=== PATIENT | male | born 2005 | race Hispanic/Latino ===

== ENCOUNTER 2024-08-18 08:40 | Observation (INO) | payer SELFPAY ==
[2024-08-18] MEDS ORDERED: NA CHLORIDE 0.9% 1,000 ML ONE (08:54)
[2024-08-18] MEDS ORDERED: ASPIRIN 81 MG CHEWABLE TABLET ONE (08:54)
[2024-08-18 09:03] LABS: Absolute Eosinophils 0.1 K/uL (0-0.5); Absolute Lymphocytes (CBC) 6.2 K/uL (0.7-4.9); Absolute Monocytes 1.2 K/uL (0.1-1.3); Absolute Neutrophil 2.9 K/uL (1.8-8.0); Basophils % 0.4 % (0-1.3); Eosinophils % 0.8 % (0-4.4); Hemoglobin 15.6 g/dL (13.6-17.9); Lymphocytes % 59.7 % (15.3-44.8); MCH 29.9 pg (27.0-35.0); MCHC 33.9 g/dL (32.0-36.0); MCV 88.3 fL (80-100); MPV 8.2 fL (7.6-11.3); Monocytes % 11.3 % (3.3-12.3); Neutrophils % 27.8 % (41.7-73.7); Nucleated Red Blood Cells % 0.1 % (0-0); Platelets 206 thou/uL (152-406); RBC Red Blood Cell Count 5.21 M/uL (4.33-5.43); Red Cell Distribution Width 13.7 % (12.1-15.2)
[2024-08-18 09:20] LABS: Anion Gap 9.7 mEq/L (5.0-15.0); Magnesium 2.3 mg/dL (1.6-2.4); Potassium 3.7 mEq/L (3.5-5.1)
[2024-08-18] MEDS ORDERED: LIDOCAINE 4% PATCH ONE (09:21)
[2024-08-18 09:22] LABS: Troponin High Sensitivity 995.5 pg/mL (<58.9)
[2024-08-18] MEDS ORDERED: HEPARIN/D5W 25,000 UNIT/500 ML BAG IV ONE (09:35)
[2024-08-18] MEDS ORDERED: HEPARIN 5000 UNIT/ML 1 ML VIAL ONE ×2 (09:35→12:08)
[2024-08-18 10:08] LABS: Barbiturates NEGATIVE (NEGATIVE); Benzodiazepines NEGATIVE (NEGATIVE); Cocaine NEGATIVE (NEGATIVE); METHAMPHETAM NEGATIVE (NEGATIVE); Methadone NEGATIVE (NEGATIVE); Opiates NEGATIVE (NEGATIVE); Phencyclidine NEGATIVE (NEGATIVE); THC Cannibis NEGATIVE (NEGATIVE)
--- NOTE | 2024-08-18 10:36 | RAD REPORT ---
Procedure: Chest Pa And Lat (2 Views) HISTORY: Chest pain COMPARISON: none FINDINGS: The lungs appear clear of acute infiltrate. No significant pleural effusion noted. The heart is normal size. IMPRESSION: No acute abnormality is displayed.
[2024-08-18 10:47] LABS: Atypical Lymphocytes 29 %; Blood Morphology Comment NOT SEEN (NOT SEEN); Differential Total Cells Count 100; Lymphocytes 11 % (15-42); Monocytes 17 % (0-10); Platelet Estimate ADEQ; Reactive Lymphocytes 15 %; Segmented Neutrophils 28 % (40-80)
--- NOTE | 2024-08-18 11:15 | EDPHYS ---
Physician Documentation [facility] Name: Shaun Colmenares Age: 19 yrs Sex: Male : 2005 Arrival Date: 08/18/2024 Time: 08:40 Bed 5 Private MD: ED Physician Misael Sin HPI: 08/18 08:52 This 19 yrs old Male presents to ER via Ambulatory with complaints of Chest Pain. ms3 08:52 Sudeep Colmenares is a 19-year-old male who presents to the emergency department with chest ms3 pain that began this morning while he was driving to work. He describes the pain as an 8 out of 10 in severity. He reports a history of needing to be shocked at age 13, though he is unsure of the details. He notes that drinking water seems to improve his symptoms, while nothing specific makes it worse. He reports having nausea. He denies vomiting, or shortness of breath.. Historical: - Allergies: 08:49 No Known Allergies; ss - Home Meds: 08:49 None [Active]; ss - PMHx: 08:49 "heart attack \\T\\ 13 years old"; ss - PSHx: 08:49 None; ss - Immunization history:: Adult Immunizations up to date. - Infectious Disease History:: Denies. - Social history:: Smoking status: Reported history of juuling and/or vaping. ROS: 08:52 Constitutional: Negative for fever, and chills. Respiratory: Negative for shortness of ms3 breath, cough, wheezing, and pleuritic chest pain, Abdomen/GI: Negative for abdominal pain, nausea, vomiting, diarrhea, and constipation, MS/Extremity: Negative for injury and deformity, Skin: Negative for injury, rash, and discoloration, 08:52 Cardiovascular: Positive for chest pain, Exam: 08:52 Constitutional: This is a well developed, well nourished patient who is awake, alert, ms3 and in no acute distress. Chest/axilla: Normal chest wall appearance and motion. Nontender with no deformity. Respiratory: Lungs have equal breath sounds bilaterally, clear to auscultation and percussion. No rales, rhonchi or wheezes noted. No increased work of breathing, no retractions or nasal flaring. Abdomen/GI: Soft, non-tender, with normal bowel sounds. No distension or tympany. No guarding or rebound. No evidence of tenderness throughout. Skin: Warm, dry with normal turgor. Normal color with no rashes, no lesions, and no evidence of cellulitis. 08:52 Cardiovascular: Rate: tachycardic, Rhythm: regular, Pulses: no pulse deficits are appreciated, Heart sounds: normal, normal S1and S2, 08:52 ECG was reviewed by the Attending Physician. ms3 Vital Signs: 08:48 BP 150 / 87; Pulse 108; Resp 19; Pulse Ox 100% on R/A; Weight 74.84 kg; Height 5 ft. 4 ss in. ; Pain 8/10; 08:54 Temp 98.5(O); ap3 09:52 BP 116 / 64; Pulse 90; Pulse Ox 99% on R/A; ap3 10:12 BP 124 / 106; Pulse 93; Resp 18; Pulse Ox 100% on R/A; ld1 12:14 BP 118 / 68; Pulse 91; Resp 18; Pulse Ox 100% on R/A; ld1 08:48 Body Mass Index 28.32 (74.84 kg, 162.56 cm) ss 08:48 Pain Scale: Adult ss MDM: 08:51 Medical Screening Exam initiated ms3 08:52 Differential diagnosis: abnormal EKG, Dehydration vs Electrolyte abnormality. ms3 12:34 HEART Score: History: Slightly Suspicious (0), ECG: Normal (0), Age: < or = 45 years ms3 (0), Risk Factors: No Risk Factors Known (0), Troponin: > or = 3 x Normal Limit (2), Total Score = 2. Data reviewed: vital signs, nurses notes, lab test result(s), radiologic studies, and as a result, I will admit patient. Consideration of Admission/Observation Patient was admitted/placed on observation. Management of patient was discussed with the following: Hospitalist: Dr Floyd. Warp Trucker: Dr Lerma. I considered the following discharge prescriptions or medication management in the emergency department Medications were administered in the Emergency Department. See MAR. Independent interpretation of the following test(s) in the Emergency Department EKG: See my EKG interpretation above. Counseling: I had a detailed discussion with the patient and/or guardian regarding the historical points, exam findings, and any diagnostic results supporting the discharge/admit diagnosis, lab results, radiology results, the need for further work-up and treatment in the hospital. Special discussion:. ED course: Discussed positive troponin with patient. Discussed case with Dr. Lerma and he came to the emergency department to see patient. He has taken patient to the Residential Insurance [facility]. Patient was discussed with Dr. Floyd and her team accepts patient. All questions were answered.. 08/18 08:51 Order name: Basic Metabolic Panel; Complete Time: 09:27 ms3 08/18 08:51 Order name: CBC with Diff; Complete Time: 11:01 ms3 08/18 08:51 Order name: Magnesium; Complete Time: 09:27 ms3 08/18 08:51 Order name: Troponin HS; Complete Time: 09:27 ms3 08/18 09:08 Order name: Manual Differential; Complete Time: 11:01 EDMS 08/18 09:27 Order name: UDS; Complete Time: 11:01 ms3 08/18 09:31 Order name: Ptt, Activated; Complete Time: 11:01 ld1 08/18 08:45 Order name: Chest Pa And Lat (2 Views) XRAY; Complete Time: 11:01 ms3 08/18 11:02 Order name: CT Chest For PE Angio; Complete Time: 11:33 ms3 08/18 08:45 Order name: EKG; Complete Time: 08:46 ms3 08/18 08:45 Order name: EKG - Nurse/Tech; Complete Time: 08:55 ms3 08/18 08:51 Order name: Cardiac monitoring; Complete Time: 08:54 ms3 08/18 08:51 Order name: IV Saline Lock; Complete Time: 08:54 ms3 08/18 08:51 Order name: Labs collected and sent; Complete Time: 08:55 ms3 08/18 08:51 Order name: O2 Per Protocol; Complete Time: 08:51 ms3 08/18 08:51 Order name: O2 Sat Monitoring; Complete Time: 08:51 ms3 EC:52 Rate is 113 beats/min. Rhythm is regular. QRS Sylvia is Normal. OK interval is normal. ms3 QRS interval is normal. Clinical impression: Sinus tachycardia. Interpreted by me. Reviewed by me. 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 ms3 Disposition Summary: 08/18/24 11:14 Hospitalization Ordered Notes: Hospitalization Status: Inpatient Admission ms3 Provider: Apollo Floyd ms3 [facility] ms3 Condition: Stable ms3 Problem: new ms3 Symptoms: are unchanged ms3 Bed/Room Type: Standard ms3 Room Assignment: ms3 Diagnosis - Elevated troponin ms3 - Chest pain, unspecified ms3 Forms: - Medication Reconciliation Form ms3 - SBAR form ms3 - Leadership Thank You Letter ms3 Critical care time excluding procedures: 12:37 Critical care time: Bedside Care: 35 minutes, Consultation: 5 minutes. Total time: 40 ms3 minutes Signatures: Dispatcher [employer] EDMS Arelis Taylor RN Misael Snell DO DO ms3 Nidhi Sin RN RN ld1 Mabel Chen RN cm10 Corrections: (The following items were deleted from the chart) 09:07 08:52 Chest Single View+RAD.RAD.BRZ ordered. EDMS EDMS 09:32 09:32 PTT, ACTIVATED+COAG.LAB.BRZ ordered. EDMS EDMS
--- NOTE | 2024-08-18 11:15 | ER ---
Nurse's Notes [facility] Name: Shaun Colmenares Age: 19 yrs Sex: Male : 2005 Arrival Date: 08/18/2024 Time: 08:40 Bed 5 Private MD: Diagnosis: Elevated troponin;Chest pain, unspecified Presentation: 08/18 08:48 Chief complaint: Patient states: Sudden onset of Chest pain this morning. Pt reports ss pain began hours ago. Reportedly has a history of HI \\T\\ 13 years old. Coronavirus screen: Client denies travel out of the [place] in the last 14 days. Ebola Screen: Patient denies exposure to infectious person. Patient denies travel to an Ebola-affected area in the 21 days before illness onset. Initial Sepsis Screen: Does the patient meet any 2 criteria? No. Patient's initial sepsis screen is negative. Does the patient have a suspected source of infection? No. Patient's initial sepsis screen is negative. Risk Assessment: Do you want to hurt yourself or someone else? Patient reports no desire to harm self or others. Onset of symptoms was August 18, 2024. 08:48 Method Of Arrival: Ambulatory ss 08:48 Acuity: FLORIN 3 ss Historical: - Allergies: 08:49 No Known Allergies; ss - Home Meds: 08:49 None [Active]; ss - PMHx: 08:49 "heart attack \\T\\ 13 years old"; ss - PSHx: 08:49 None; ss - Immunization history:: Adult Immunizations up to date. - Infectious Disease History:: Denies. - Social history:: Smoking status: Reported history of juuling and/or vaping. Screenin:57 [facility] ED Fall Risk Assessment (Adult) History of falling in the last 3 months, ap3 including since admission No falls in past 3 months (0 pts) Confusion or Disorientation No (0 pts) Intoxicated or Sedated No (0 pts) Impaired Gait No (0 pts) Mobility Assist Device Used No (0 pt) Altered Elimination No (0 pt) Score/Fall Risk Level 0 - 2 = Low Risk Oriented to surroundings, Maintained a safe environment, Educated pt \\T\\ family on fall prevention, incl call for assistance when getting out of bed, Assessed \\T\\ reinforced patient's understanding of fall precautions, Hourly rounding (assess needs \\T\\ fall precautionary measures) done, Used ambulatory aids as needed (educated on \\T\\ assisted with), Used gait belt as appropriate. Abuse screen: Denies threats or abuse. Nutritional screening: No deficits noted. Tuberculosis screening: No symptoms or risk factors identified. Assessment: 08:55 General: Appears uncomfortable, Behavior is calm, cooperative, appropriate for age. ap3 08:56 Pain: Complains of pain in chest Pain began this morning. Pain: Pain does not radiate. ap3 Pain currently is 7 out of 10 on a pain scale. Neuro: Level of Consciousness is awake, alert, obeys commands, Oriented to person, place, time, situation, Speech is normal. Cardiovascular: Reports chest pain, nausea. Respiratory: Airway is patent Respiratory effort is even, unlabored, Respiratory pattern is regular, symmetrical. GI: Reports nausea. 10:12 Reassessment: Patient appears in no apparent distress at this time. No changes from ld1 previously documented assessment. Patient and/or family updated on plan of care and expected duration. Pain level reassessed. Patient denies pain at this time. Patient states symptoms have improved. 12:09 General: Pt being taken to cathlab at this time.. cm10 12:14 Reassessment: Patient appears in no apparent distress at this time. No changes from ld1 previously documented assessment. Patient and/or family updated on plan of care and expected duration. Pain level reassessed. Vital Signs: 08:48 BP 150 / 87; Pulse 108; Resp 19; Pulse Ox 100% on R/A; Weight 74.84 kg; Height 5 ft. 4 ss in. ; Pain 8/10; 08:54 Temp 98.5(O); ap3 09:52 BP 116 / 64; Pulse 90; Pulse Ox 99% on R/A; ap3 10:12 BP 124 / 106; Pulse 93; Resp 18; Pulse Ox 100% on R/A; ld1 12:14 BP 118 / 68; Pulse 91; Resp 18; Pulse Ox 100% on R/A; ld1 08:48 Body Mass Index 28.32 (74.84 kg, 162.56 cm) ss 08:48 Pain Scale: Adult ss ED Course: 08:41 Patient arrived in ED. ra3 08:44 Misael Sin DO is Attending Physician. ms3 08:49 Triage completed. ss 08:49 Arm band placed on left wrist. ss 08:55 Michelle Fang, RN is Primary Nurse. ap3 08:55 Patient has correct armband on for positive identification. Placed in gown. Bed in low ap3 position. Call light in reach. Side rails up X 1. Adult w/ patient. Client placed on continuous cardiac and pulse oximetry monitoring. NIBP monitoring applied. carbon paper interleafer on. Pulse ox on. NIBP on. Door closed. Noise minimized. 08:55 Basic Metabolic Panel Sent. bc6 08:55 CBC with Diff Sent. bc6 08:55 Magnesium Sent. bc6 08:55 Troponin HS Sent. bc6 08:55 Initial lab(s) drawn, by me, sent to lab. Inserted saline lock: 20 gauge in left bc6 antecubital area, using aseptic technique. Blood collected. Flushed with 10 mL NS. 08:57 Patient maintains SpO2 saturation greater than 95% on room air. ap3 09:07 Chest Pa And Lat (2 Views) XRAY In Process Unspecified. EDMS 09:44 UDS Sent. ld1 11:13 Apollo Floyd is Hospitalizing Provider. ms3 11:19 CT Chest For PE Angio In Process Unspecified. EDMS 12:14 No provider procedures requiring assistance completed. Patient admitted, IV remains in ld1 place. 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 ld1 Intake: Outcome: 11:14 Decision to Hospitalize by Provider. ms3 12:15 Admitted to [facility] accompanied by nurse, ld1 12:15 Condition: stable 12:15 Instructed on the need for admit, 12:15 Patient left the ED. ld1 Signatures: Dispatcher [employer] EDMS Arelis Taylor RN RN ss Michelle Fang RN RN ap3 Misael Sin, DO DO ms3 Nidhi Sin RN RN ld1 Kristel Bennett bc6 Mabel Chen RN RN cm10 Romy Vides 3 Mabel Chen RN cm10
--- NOTE | 2024-08-18 11:26 | RAD REPORT ---
EXAMINATION: CTA CHEST PE CLINICAL INDICATION: Chest pain TECHNIQUE: 100 cc 370 Isovue administered intravenously. This examination was performed according to an angiographic protocol with 3D post-processing. This involves 3D reconstructions, MIPs, volume rendered images and/or shaded surface rendering. One or more of the following dose reduction techniqu es were used: Automated exposure control, adjustment of the mA and/or kV according to patient size, and/or iterative reconstruction. Unless otherwise specified, incidental findings do not require dedic ated imaging follow-up. [id number]. COMPARISON: No prior exam. FINDINGS: A pulmonary embolus is not seen. An aortic aneurysm not noted. No pleural effusion. No pericardial effusion. Lungs are clear. Visualized spleen is enlarged. IMPRESSION: No evidence of a pulmonary embolism
[2024-08-18] MEDS ORDERED: ATROPINE SULF 1 MG/10 ML SYR IV ONE (12:07)
[2024-08-18] MEDS ORDERED: LIDOCAINE 1% 20 ML MDV ONE (12:07)
[2024-08-18] MEDS ORDERED: HEPA 1000U/500MLS 2,000 UNIT/1,000 ML BAG IV ONE (12:07)
[2024-08-18] MEDS ORDERED: HEPARIN 10,000 UNIT/10 ML VIAL IV ONE (12:07)
[2024-08-18] MEDS ORDERED: MIDAZOLAM HCL 2 MG/2 ML INJ ONE (12:07)
[2024-08-18] MEDS ORDERED: TICAGRELOR 90 MG TABLET PO ONE (12:08)
[2024-08-18] MEDS ORDERED: CLOPIDOGREL 75 MG TABLET ONE (12:08)
[2024-08-18] MEDS ORDERED: FENTANYL CITR 100 MCG/2 ML ONE (12:08)
[2024-08-18] MEDS ORDERED: NA CHLORIDE 0.9% 500 ML ONE (12:18)
--- NOTE | 2024-08-18 12:34 | P.CNS ---
Date of Consult: 08/18/24 Chief Complaint: chest pain History of Present Illness: Patient with PMH of HLD, vaping presented with chest pain, pressure in nature, mid chest that started earlier today while he was driving to work, he has been under lot of stress and chest pain resolved in ER, no other cardiac symptoms. Allergies No Known Allergies Allergy (Unverified 08/18/24 12:34) Home medications list reviewed: Yes Review of Systems 10-point ROS is otherwise unremarkable Physical Examination General: Alert, In no apparent distress HEENT: Atraumatic, PERRLA, Mucous membr. moist/pink, EOMI, Sclerae nonicteric Neck: Supple, 2+ carotid pulse no bruit, No LAD, Without JVD or thyroid abnormality Respiratory: Clear to auscultation bilaterally, Normal air movement Cardiovascular: Regular rate/rhythm, Normal S1 S2 Gastrointestinal: Normal bowel sounds, No tenderness Musculoskeletal: No tenderness Integumentary: No rashes Neurological: Normal gait, Normal speech, Normal tone, Normal affect Lymphatics: No axilla or inguinal lymphadenopathy Laboratory Data (last 24 hrs) 08/18/24 08/18/24 08/18/24 09:46 08:55 08:55 WBC 10.40 Hgb 15.6 Hct 46.0 Plt Count 206 APTT 28.5 Sodium 137 Potassium 3.7 BUN 13 Creatinine 0.98 Glucose 97 Magnesium 2.3 - Problems (1) NSTEMI (non-ST elevated myocardial infarction) Current Visit: Yes Status: Acute Plan: Patient had high first set of troponin with chest pain so we proceeded with coronary angiogram that shown normal coronaries, elevated troponin can be secondary to vasospasm vs myocarditis as patient report recent viral illness, get Echo
--- NOTE | 2024-08-18 12:35 | P.HP ---
Certification for Inpatient Patient admitted to: Observation With expected LOS: <2 Midnights Patient will require the following post-hospital care: None Practitioner: I am a practitioner with admitting privileges, knowledge of patient current condition, hospital course, and medical plan of care. Services: Services provided to patient in accordance with Admission requirements found in Title 42 Section 412.3 of the Code of Federal Regulations Patient History Date of Service: 08/18/24 Reason for admission: CP, with hx of SD History of Present Illness: Mr. Colmenares apparently had a SD at age 13. He gives a history of hyperlipidemia. Unfortunately he vapes. He presented to the emergency department status post chest pain to left substernal area. Initial labs negative except a very elevated troponin of 995.5. He denies substance abuse, denies excessive caffeine, he does state he has been under a lot of stress, and just recovered from the flu 1 to 2 weeks ago. His EKG shows no ST changes but mild tachycardia. Dr. Lerma evaluated patient in the emergency department and discussed a left heart cath. Mr. 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 Allergies No Known Allergies Allergy (Unverified 08/18/24 12:34) - Past Medical/Surgical History Has patient received pneumonia vaccine in the past: No -: SD at 13 yr of age (?) -: HLD Psychosocial/ Personal History: Lives at home, works, has a girlfriend - Social History Smoking Status: Current every day smoker (Vapes) Alcohol use: Yes CD- Drugs: No Caffeine use: Yes Place of Residence: Home Review of Systems 10-point ROS is otherwise unremarkable General: Unremarkable Eyes: Unremarkable ENT: Unremarkable Respiratory: Unremarkable Cardiovascular: Chest Pain Gastrointestinal: Unremarkable Genitourinary: Unremarkable Musculoskeletal: Unremarkable Integumentary: Unremarkable Neurological: Unremarkable Lymphatics: Unremarkable Physical Examination - Physical Exam General: Alert, In no apparent distress, Oriented x3 HEENT: Atraumatic, Normocephalic Neck: Supple Respiratory: Clear to auscultation bilaterally Cardiovascular: No edema, Normal pulses Capillary refill: <2 Seconds Gastrointestinal: Normal bowel sounds, Soft and benign Musculoskeletal: No clubbing, No swelling Integumentary: No rashes, No breakdown Neurological: Normal speech, Normal tone, Normal affect Lymphatics: No axilla or inguinal lymphadenopathy External genitalia: Deferred Rectal: Deferred - Studies Laboratory Data (last 24 hrs) 08/18/24 08/18/24 08/18/24 09:46 08:55 08:55 WBC 10.40 Hgb 15.6 Hct 46.0 Plt Count 206 APTT 28.5 Sodium 137 Potassium 3.7 BUN 13 Creatinine 0.98 Glucose 97 Magnesium 2.3 Assessment and Plan - Plan Chest pain with elevated troponin 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
[2024-08-18] MEDS ORDERED: ACETAMINOPHEN 500 MG TAB PO PRN (12:41)
[2024-08-18] MEDS ORDERED: INDOMETHACIN 25 MG CAP PO ONE (16:00)
[2024-08-18] MEDS: NA CHLORIDE 0.9% 1,000 ML IV SCH (16:16)
[2024-08-18] MEDS: ATORVASTATIN 10 MG TAB PO SCH (20:27)
[2024-08-18] MEDS: INDOMETHACIN 25 MG CAP PO SCH (20:27)
[2024-08-18] MEDS: MELATONIN 5 MG TABLET PO PRN (20:27)
[2024-08-18 21:56] VITALS: BMI 28.3
--- NOTE | 2024-08-19 02:02 | OP ---
Date of Procedure: 08/18/2024 Surgeon: Domingo Lerma Procedure Performed: Selective coronary angiogram. Indication For Procedure: [id number] NM. Complications: None. Estimated Blood Loss: Less than 50 cc. Access: Right radial, closed by TR band. Sedation Time: 20 minutes with 1 of Versed and 25 of fentanyl. Description Of Procedure: After risks, benefits, and alternatives were explained to the patient, the patient agreed to proceed with procedure and signed informed consent. The patient was brought back to the collaborative teacher, prepped and draped in sterile fashion. Time-out was performed. Sedation was admini stered. Next, right radial access was obtained using ultrasound-guided micropuncture technique. Tig er 4 catheter was advanced over J-wire to the aortic root. Selective angiogram was done using same c atheter. At the end of procedure, catheter was removed over a J-wire. Sheath was removed. TR band was applied. Hemostasis achieved. The patient was moved back to recovery in stable condition. Findings: 1.Left main normal. 2.LAD normal. 3.Left circ normal. 4.RCA normal. Assessment: Normal coronaries. Plan: Continue medical management. MARIE/MODL Voice ID: [id number] Report ID: [id number]
[2024-08-19 05:02] LABS: Absolute Eosinophils 0.1 K/uL (0-0.5); Absolute Lymphocytes (CBC) 4.8 K/uL (0.7-4.9); Absolute Monocytes 0.9 K/uL (0.1-1.3); Absolute Neutrophil 1.6 K/uL (1.8-8.0); Basophils % 0.4 % (0-1.3); Eosinophils % 1.7 % (0-4.4); Hematocrit 38.9 % (39.6-49.0); Hemoglobin 13.5 g/dL (13.6-17.9); MCH 30.4 pg (27.0-35.0); MCHC 34.7 g/dL (32.0-36.0); MCV 87.6 fL (80-100); MPV 8.4 fL (7.6-11.3); Monocytes % 11.5 % (3.3-12.3); Neutrophils % 21.7 % (41.7-73.7); Nucleated Red Blood Cells % 0.5 % (0-0); Platelets 166 thou/uL (152-406); RBC Red Blood Cell Count 4.44 M/uL (4.33-5.43); Red Cell Distribution Width 13.7 % (12.1-15.2)
[2024-08-19 05:04] LABS: Lymphocytes % 64.7 % (15.3-44.8)
[2024-08-19 05:14] LABS: Anion Gap 5.7 mEq/L (5.0-15.0); Potassium 3.7 mEq/L (3.5-5.1)
[2024-08-19 08:53] VITALS: BP 119/68; TEMP 97.7
[2024-08-19] MEDS: ASPIRIN EC 81 MG TAB PO SCH (09:22)
[2024-08-19 09:32] VITALS: O2SAT 99
--- NOTE | 2024-08-19 11:59 | P.PN ---
Subjective Date of Service: 08/19/24 Chief Complaint: CP, with hx of [place] Subjective: No new changes, No C/O voiced, Tolerating diet, Ambulating, Improving Review of Systems 10-point ROS is otherwise unremarkable Physical Examination - Vital Signs Temperature: 97.7 F Blood Pressure: 119/68 Pulse: 81 Respirations: 18 Pulse Ox (%): 99 - Physical Exam General: Alert, In no apparent distress HEENT: Atraumatic, PERRLA, EOMI Neck: Supple, JVD not distended Respiratory: Clear to auscultation bilaterally, Normal air movement Cardiovascular: Regular rate/rhythm, Normal S1 S2 Gastrointestinal: Normal bowel sounds, No tenderness Musculoskeletal: No tenderness Integumentary: No rashes Neurological: Normal speech, Normal tone, Normal affect Lymphatics: No axilla or inguinal lymphadenopathy - Studies Medications List Reviewed: Yes Assessment And Plan - Current Problems (Diagnosis) (1) NSTEMI (non-ST elevated myocardial infarction) Current Visit: Yes Status: Acute Plan: Patient had high first set of troponin with chest pain so we proceeded with coronary angiogram that shown normal coronaries, elevated troponin can be secondary to vasospasm vs myocarditis as patient report recent viral illness, Echo shows normal EF.
--- NOTE | 2024-08-19 20:10 | P.DS ---
Admission Date: 08/18/24 Discharge Date: 08/19/24 Disposition: ROUTINE DISCHARGE Discharge Condition: GOOD Reason for Admission: CP, with hx of RI Consultations: Dr. Lerma Procedures: Left heart catheterization Brief History of Present Illness: Mr. Colmenares apparently had a RI at age 13. He gives a history of hyperlipidemia. Unfortunately he vapes. He presented to the emergency department status post chest pain to left substernal area. Initial labs negative except a very elevated troponin of 995.5. He denies substance abuse, denies excessive caffeine, he does state he has been under a lot of stress, and just recovered from the flu 1 to 2 weeks ago. His EKG shows no ST changes but mild tachycardia. Dr. Lerma evaluated patient in the emergency department and discussed a left heart cath. Mr. Colmenares was taken from the emergency department to the Promotional Marketing Analyst for evaluation. Hospital Course: Patient had high first set of troponin with chest pain so we proceeded with coronary angiogram that shown normal coronaries, elevated troponin can be secondary to vasospasm vs myocarditis as patient report recent viral illness, We started him on indocin for pain. He was anxious for discharge and left without discharge papers or prescription. Echo shows normal EF. Vital Signs/Physical Exam: Temp Pulse Resp BP Pulse Ox 97.7 F 81 18 119/68 99 08/19/24 11:59 08/19/24 11:59 08/19/24 11:59 08/19/24 11:59 08/19/24 11:59 General: Alert, In no apparent distress, Oriented x3 HEENT: Atraumatic, Normocephalic, PERRLA Neck: Supple, 2+ carotid pulse no bruit Respiratory: Clear to auscultation bilaterally, Normal air movement Cardiovascular: No edema, Normal pulses, Regular rate/rhythm, Normal S1 S2 Capillary refill: <2 Seconds Gastrointestinal: Normal bowel sounds, Soft and benign Musculoskeletal: No clubbing Integumentary: No rashes Neurological: Normal speech, Normal tone, Normal affect Lymphatics: No axilla or inguinal lymphadenopathy External genitalia: Deferred Rectal: Deferred Laboratory Data at Discharge: WBC 7.40 thou/uL (4.3-10.9) 08/19/24 04:30 Hgb 13.5 g/dL (13.6-17.9) L D 08/19/24 04:30 Hct 38.9 % (39.6-49.0) L 08/19/24 04:30 Plt Count 166 thou/uL (152-406) 08/19/24 04:30 APTT 28.5 SECONDS (24.3-36.9) 08/18/24 09:46 Sodium 139 mEq/L (136-145) 08/19/24 04:30 Potassium 3.7 mEq/L (3.5-5.1) 08/19/24 04:30 BUN 7 mg/dL (7-18) 08/19/24 04:30 Creatinine 0.72 mg/dL (0.70-1.30) 08/19/24 04:30 Glucose 95 mg/dL (74-106) 08/19/24 04:30 Magnesium 2.3 mg/dL (1.6-2.4) 08/18/24 08:55 Triglycerides 85 mg/dL (<150) 08/19/24 04:30 Cholesterol 107 mg/dL (<200) 08/19/24 04:30 HDL Cholesterol 27 mg/dL (40-60) L 08/19/24 04:30 Cholesterol/HDL Ratio 3.96 08/19/24 04:30 Home Medications: NK [No Home Meds] 08/19/24 Physician Discharge Instructions: Recommend smoking/vaping cessation. Follow-up with PCP. May take Indocin twice daily x 10 days for chest pain. Diet: Regular Followup: Domingo Lerma MD [ACTIVE - CAN ADMIT] - NONE,NONE [Primary Care Provider] -
--- NOTE | 2024-08-20 07:21 | ECHO ---
HEIGHT: 5 ft 4 in WEIGHT: 165 lb 0 oz DATE OF STUDY: 08/19/[address]: Hermila Colin MEDIA RECONCILIATION SPECIALIST- 2-DIMENSIONAL: YES M.MODE: YES DOPPLER: YES COLOR FLOW: YES TDS: NO PORTABLE: YES DEFINITY: NO BUBBLE STUDY: NO DIAGNOSIS: VASOSPASM VS. MYOCARDITIS CARDIAC HISTORY: CATHERIZATION: NO SURGERY: NO PROSTHETIC VALVE: NO PACEMAKER: NO MEASUREMENTS (cm) DIASTOLIC (NORMALS) SYSTOLIC (NORMALS) IVSd 0.9 (0.6-1.2) LA Diam 3.2 (1.9-4.0) LVEF 60-65% LVIDd 4.0 (3.5-5.7) LVIDs 2.9 (2.0-3.5) %FS 29% LVPWd 0.9 (0.6-1.2) Ao Diam 2.2 (2.0-3.7) 2 DIMENSIONAL ASSESSMENT: RIGHT ATRIUM: NORMAL LEFT ATRIUM: NORMAL RIGHT VENTRICLE: NORMAL LEFT VENTRICLE: NORMAL TRICUSPID VALVE: TRACE TRICUSPID REGURGITATION MITRAL VALVE: NORMAL PULMONIC VALVE: NORMAL AORTIC VALVE: NORMAL PERICARDIAL EFFUSION: NONE AORTIC ROOT: NORMAL LEFT VENTRICULAR WALL MOTION: NORMAL. DOPPLER/COLOR FLOW: NORMAL. COMMENTS: 1. NORMAL LEFT VENTRICULAR SYSTOLIC FUNCTION. LEFT VENTRICULAR EJECTION FRACTION 60-65%. NORMAL WALL MOTION. 2. NORMAL DIASTOLIC FUNCTION. TECHNOLOGIST: DONI OREILLY
--- NOTE | 2024-08-25 12:45 | EKG ---
Test Date: 2024-08-18 Test Time: 08:52:07 Passenger Tire Builder: ALP MEASUREMENT RESULTS: Intervals: Rate: 113 LA: 132 QRSD: 94 QT: 320 QTc: 438 [place]: P: 80 LA: 132 QRS: 99 T: 67 INTERPRETIVE STATEMENTS: Sinus tachycardia Otherwise normal ECG Compared to ECG 08/18/2024 08:48:06 No significant changes Electronically Signed On 08-25-24 12:25:39 MACHINE GREASER by Domingo Lerma
--- NOTE | 2024-08-25 12:45 | EKG ---
Test Date: 2024-08-18 Test Time: 08:48:06 Process Checker: ALP MEASUREMENT RESULTS: Intervals: Rate: 120 MT: 132 QRSD: 92 QT: 310 QTc: 438 [place]: P: 81 MT: 132 QRS: 100 T: 64 INTERPRETIVE STATEMENTS: Sinus tachycardia Otherwise normal ECG No previous ECG available for comparison Electronically Signed On 08-25-24 12:25:41 EMT P by Domingo Lerma
== END 2024-08-19 13:05 | disposition home or self-care (01) ==
LOC: ER 08:40 → 2ND 13:37
PROVIDERS: ADMIT Internal Medicine; ATTEND Internal Medicine
PROC: B2111ZZ Fluoroscopy of Multiple Coronary Arteries using Low Osmolar Contrast (ICD-10-PCS; principal; 2024-08-18)
DX: I21.4 Non-ST elevation (NSTEMI) myocardial infarction (principal); E78.5 Hyperlipidemia, unspecified; I25.2 Old myocardial infarction; F17.290 Nicotine dependence, other tobacco product, uncomplicated
CPT/HCPCS: 36415; 71046; 71275; 76937; 80048; 80061; 80307; 82550; 83735; 84484; 85025; 85730; 93005; 93306; 93454; 96365; 96366; 99152; 99153; 99285; C1893; G0378; J0461; J1644; J2003; J2250; J3010; J7030; J7040; Q9966; Q9967

== ENCOUNTER 2024-11-04 22:14 | Emergency (ER) | payer SELFPAY ==
--- OUTSIDE RECORDS SUMMARY | 2024-11-04 22:16 | XMS REPORT | Continuity of Care Document ---
Author Name Unknown Address [address] [facility] [address] [place] [address] [facility] Address [address] [facility] [place] [address] Care Team Providers Care Documentation Spec Name Role Phone Unavailable Unavailable Unavailable Payers Payer Name Policy Type Policy Number Effective Date Expirati on Date Source Allergies, Adverse Reactions, Alerts Allergy Name Allergy Type Status Severity Reaction(s) Onset Date Inactive Date Treating Clinician Comments Source Penicill ins DA Active SV 12-17 00:00: 00 [facility] Results Test Description Test Time Test Comments Results Resul t Comments Source - XR CHEST 2 V 2019-03-21 19:02:00 FAX: Dinorah De Leon [phone] [place]: St: REG Name: LUKE ENCISO [facility] : 2005 Age/S: 13/M [address] [place] [address] Blvd Unit #: [id number] Loc: [place] [address] Phys: Dinorah Ogden MD Acct: [id number] Dis Date: Status: REG CLI PHONE #: [phone] Exam Date: 03/21/20191899 FAX #: [phone] Reason: SPORTS PHYSICAL EXAMS: CPT CODE: [id number] XR CHEST 2 V 38999 Patient: LUKE ENCISO. : 2005; Age: 13 years; Gender: Male. MR: [id number]. Ordering physician: Dinorah Ogden MD. CHEST 2 VIEWS: HISTORY: Sports physical. COMPARISON: Chest x-ray 04/03/2018. FINDINGS: Frontal and lateral views of the chest were obtained. The lungs are clear bilaterally. The cardiomediastinal silhouette and pulmonary vasculature are unremarkable. The partially visualized upper abdomen is unremarkable. IMPRESSION: No acute disease in the chest. SL: ANNEMARIE- at 190 Reported and signed by: Michael Walter M.D. CC: Dinorah Ogden MD Technologist: RT Festus(R) Trnscrd Date/Time/By: 03/21/2019 (1901) : By: [email or web address] Orig Print D/T: S: 03/21/2019 (1904) PAGE 1 Signed Report - XR ELBOW 2 VIEWS RT 2018-10-17 10:18:00 FAX: Dinorah De Leon [phone] [place]: St: PRE FAX: Ralph Onofre [phone] FAX: Lissette Johnson DO Name: LUKE ENCISO [facility] : 2005 Age/S: 13/M [address] [place] [address] Unit #: [id number] Loc: [place] [address] Phys: Ralph Corey Acct: [id number] Dis Date: Status: PRE ER PHONE #: [phone] Exam Date: 10/17/2018 1017 FAX #: [phone] Reason: right pain sp fall EXAMS: CPT CODE: [id number] XR ELBOW [address] [place] [id number] 2 VIEWS OF THE RIGHT ELBOW HISTORY: Patient fell to the gym floor. Right elbow pain. COMPARISON: No priors available. Bony structures of the elbow are intact. No fracture or dislocation. Adjacent soft tissues normal. IMPRESSION: Normal exam. END OF IMPRESSION [id number] at 1018 Reported and signed by: Grady Mcnulty M.D. CC: Dinorah Ogden MD; Ralph QUIÑONES; Lissette Larson DO Technologist: RT Andres(Collette) Trnscrd Date/Time/By: 10/17/2018 (1018) : By: Sabina Orig Print D/T: S: 10/17/2018 (1022) PAGE 1 Signed Report Notes Date/Time Note Provider Source 2018-10-17 10:05:00 [facility] EMERGENCY PROVIDER REPORT REPORT#:[id number] REPORT STATUS: Signed DATE:10/17/18 TIME: 1005 PATIENT: LUKE ENCISO UNIT #: [id number] ROOM/BED: AGE: 13 SEX: M PCP PHYS: Dinorah Ogden MD SERVICE AUTHOR: Ralph Corey * ALL edits or amendments must be made on the electronic/computer document * HPI-Trauma Minor/Fall Peds General Confirmed Patient Yes Initial Greet Date/Time 10/17/18 0952 PCP Dinorah Jay Presentation Chief Complaint Fall Hx Obtained from Patient Onset Occurred Today Context: Occurred at School Location Upper extremity R (elbow) Severity: Current Pain level 6 out of 10 Associated with Denies: Loss of consciousness, Vomiting. Free Text HPI Notes Free Text HPI Notes 13 y/o M presents to the ED due to a fall at school this morning. Pt states that he was playing basketball at school when he slipped and fell on his R elbow. School nurse applied ice and a splint, but no pain meds were given. R elbow pain is rated at 6/10, but denies any other pain. Pt takes concerta 54 mg, and is allergic to penicillin. Portions of this section were scribed by Bry Reno on 10/17/18 at 1025 Review of Systems ROS Statements All systems rev neg except as marked. Review of Systems GI Denies: Vomiting - non-bilious. Musculoskeletal Reports: Joint pain (R elbow). Neurologic Denies: Change LOC. Portions of this section were scribed by Bry Reno on 10/17/18 at 1024 Past Medical History - Peds Stated Complaint FELL FROM STANDING TO GYM FLOOR, R ELBOW PAIN Allergies Coded Allergies: Penicillins (Severe, RASH 12/17/09) SPECIFIC Allergy: PENICILLINS Home Medications Reported Medications No Known Home Medications Additional Medical History ADHD Additional Surgical History ear tubes, tonsillectomy Social History Reports: Lives with parents, Good social support. Portions of this section were scribed by Bry Reno on 10/17/18 at 1005 Physical Exam Vital Signs Vital Signs First Documented: Result Date Time Pulse Ox 99 10/17 1000 B/P 132/84 10/17 1000 B/P Mean 100 10/17 1000 O2 Delivery Room air 10/17 1000 Temp 37.1 10/17 1000 Pulse 83 10/17 1000 Resp 16 10/17 1000 Last Documented: Result Date Time Pulse Ox 98 10/17 1047 B/P 126/67 10/17 1047 B/P Mean 86 10/17 1047 O2 Delivery Room air 10/17 1047 Temp 36.7 10/17 1047 Pulse 84 10/17 1047 Resp 16 10/17 1047 Review of Vital Signs Reviewed Focused PE General/Const General/Const Awake, Alert, Well appearing, Well developed, Cooperative, Not toxic appearing MS Head Head Atraumatic, Normocephalic Eyes Eyes EOMI, Conjunctiva NL Ears/Nose/Throat Ears/Nose/Throat Airway patent, Mucous membranes moist MS Neck Neck Supple, Full range of motion Resp/Chest Respiratory/Chest Breath sounds NL, No respiratory distress, No rales, No rhonchi, No wheezing Cardiovascular Cardiovascular Heart rate NL, Regular rhythm, Heart sounds NL Abdomen/GI Abdomen/GI Soft, Non-tender, No guarding, No rebound, No distention MS Upper Extrem Text/Dict Notes Swelling and tenderness to R elbow, decreased ROM due to swelling, neurovascularly intact MS Lower Extrem Lower Extremity/Pelvis/MS No swelling, Non-tender Skin Skin No rash, Warm, Dry, Intact Neurologic Neurologic Orientation NL for age, Speech NL for age Portions of this section were scribed by Bry Reno on 10/17/18 at 1024 Interpretation Diagnostics Lab Results Interpretation Results Recent Impressions: RADIOLOGY - XR ELBOW 2 VIEWS RT 10/17 1017 Report Impression - Status: SIGNED Entered: 10/17/2018 1022 IMPRESSION: Normal exam. END OF IMPRESSION [id number] Impression By: DarienRTB - Grady Mcnulty M.D. Imaging Statement Radiographic studies reviewed and considered in the medical decision-making. Radiography X-Ray Interpretation Text/Dict Note Normal exam. Order - Upper Extremity Elbow R Interpretation/Wet Read by Interpret - Radiologist Reviewed by ED PA Portions of this section were scribed by Bry Reno on 10/17/18 at 1025 Re-Evaluation MDM Free Text MDM Notes Free Text MDM Notes No acute osseous abnormality identified on plain film radiography, elbow contusion. Referred to orthopedics for further evaluation and treatment. Educated on return to ED criteria. Parents agrees and acknowledges understanding of the plan. Re-Evaluation/Progress #1 Text/Dict Note Discussed results with pt and family, plan to D/C home and f/u w/ orthopedics. Provided reasons to return to the ED. Pt and family agree with plan. Time of Re-Eval 1021 ED Course Medication(s) Ordered Medication(s) Ordered: Central Nervous System Agents Sig/Crissy Start time Last Medication Dose Route Stop Time Status Admin Ibuprofen 400 MG X1ED STA 10/17 1006 DC PO 10/17 1007 Portions of this section were scribed by Bry Reno on 10/17/18 at 1025 Patient Discharge Departure Vital Signs/Condition Vital Signs First Documented: Result Date Time Pulse Ox 99 10/17 1000 B/P 132/84 10/17 1000 B/P Mean 100 10/17 1000 O2 Delivery Room air 10/17 1000 Temp 37.1 10/17 1000 Pulse 83 10/17 1000 Resp 16 10/17 1000 Last Documented: Result Date Time Pulse Ox 98 10/17 1046 B/P 126/67 10/17 1047 B/P Mean 86 10/17 1047 O2 Delivery Room air 10/17 1046 Temp 36.7 10/17 1046 Pulse 84 10/17 1047 Resp 16 10/17 1047 All vital signs available at the time of this entry have been reviewed. Condition Stable Clinical Impression Clinical Impression Primary Impression: Elbow contusion Disposition Decision Discharge )( Discharged to Home Yes )( Time 1023 )( Date 10/17/18 Discharge/Care Plan Counseled Regarding Diagnosis, Imaging studies, Prescriptions, Need for follow- up, When to return to ED Prescriptions Motrin Discharge Note I have spoken with the patient and/or caregivers. I have explained the patient's condition, diagnoses and treatment plan based on the information available to me at this time. I have answered the patient's and/or caregiver's questions and addressed any concerns. The patient and/or caregivers have as good an understanding of the patient's diagnosis, condition and treatment plan as can be expected at this point. The vital signs have been stable. The patient's condition is stable and appropriate for discharge from the emergency department. The patient will pursue further outpatient evaluation with the primary care physician or other designated or consulting physician as outlined in the discharge instructions. The patient and/or caregivers are agreeable to this plan of care and follow-up instructions have been explained in detail. The patient and/or caregivers have received these instructions in written format and have expressed an understanding of the discharge instructions. The patient and/or caregivers are aware that any significant change in condition or worsening of symptoms should prompt an immediate return to this or the closest emergency department or a call to 911. Supervising Physician Note Scribe Statement Bry Reno, 10/17/18 1025, scribing for and in the presence of ISHMAEL Adame. Signed By: Bry Reno, 10/17/18 1025 Provider Scribed Statement I personally performed the services described in this documentation and reviewed the documentation that was dictated to the scribe(s) in my presence, and it accurately records my words and actions. Ralph Corey, 10/18/18 Portions of this section were scribed by Bry Reno on 10/17/18 at 1025 at 2150 RPT #:[id number] END OF REPORT [facility] 2018-10-17 10:05:00 [facility] ([facility]) EMERGENCY PROVIDER REPORT REPORT#:[id number] REPORT STATUS: Signed DATE:10/17/18 TIME: 1005 PATIENT: LUKE ENCISO UNIT #: [id number] ROOM/BED: AGE: 13 SEX: M PCP PHYS: Dinorah Ogden MD SERVICE AUTHOR: Ralph Corey * ALL edits or amendments must be made on the electronic/computer document * Ralph Corey 10/17/18 1005: HPI-Trauma Minor/Fall Peds General Confirmed Patient Yes PCP Dinorah Jay Presentation Chief Complaint Fall Hx Obtained from Patient Onset Occurred Today Context: Occurred at School Location Upper extremity R (elbow) Severity: Current Pain level 6 out of 10 Associated with Denies: Loss of consciousness, Vomiting. Free Text HPI Notes Free Text HPI Notes 13 y/o M presents to the ED due to a fall at school this morning. Pt states that he was playing basketball at school when he slipped and fell on his R elbow. School nurse applied ice and a splint, but no pain meds were given. R elbow pain is rated at 6/10, but denies any other pain. Pt takes concerta 54 mg, and is allergic to penicillin. Portions of this section were scribed by Bry Reno on 10/17/18 at 1025 Review of Systems ROS Statements All systems rev neg except as marked. Review of Systems GI Denies: Vomiting - non-bilious. Musculoskeletal Reports: Joint pain (R elbow). Neurologic Denies: Change LOC. Portions of this section were scribed by Bry Reno on 10/17/18 at 1024 Past Medical History - Peds Stated Complaint FELL FROM STANDING TO GYM FLOOR, R ELBOW PAIN Allergies Coded Allergies: Penicillins (Severe, RASH 12/17/09) SPECIFIC Allergy: PENICILLINS Home Medications Reported Medications No Known Home Medications Additional Medical History ADHD Additional Surgical History ear tubes, tonsillectomy Social History Reports: Lives with parents, Good social support. Portions of this section were scribed by Bry Reno on 10/17/18 at 1005 Physical Exam Vital Signs Vital Signs First Documented: Result Date Time Pulse Ox 99 10/17 1000 B/P 132/84 10/17 1000 B/P Mean 100 10/17 1000 O2 Delivery Room air 10/17 1000 Temp 37.1 10/17 1000 Pulse 83 10/17 1000 Resp 16 10/17 1000 Last Documented: Result Date Time Pulse Ox 98 10/17 1047 B/P 126/67 10/17 1047 B/P Mean 86 10/17 1047 O2 Delivery Room air 10/17 1047 Temp 36.7 10/17 1047 Pulse 84 10/17 1047 Resp 16 10/17 1047 Review of Vital Signs Reviewed Focused PE General/Const General/Const Awake, Alert, Well appearing, Well developed, Cooperative, Not toxic appearing MS Head Head Atraumatic, Normocephalic Eyes Eyes EOMI, Conjunctiva NL Ears/Nose/Throat Ears/Nose/Throat Airway patent, Mucous membranes moist MS Neck Neck Supple, Full range of motion Resp/Chest Respiratory/Chest Breath sounds NL, No respiratory distress, No rales, No rhonchi, No wheezing Cardiovascular Cardiovascular Heart rate NL, Regular rhythm, Heart sounds NL Abdomen/GI Abdomen/GI Soft, Non-tender, No guarding, No rebound, No distention MS Upper Extrem Text/Dict Notes Swelling and tenderness to R elbow, decreased ROM due to swelling, neurovascularly intact MS Lower Extrem Lower Extremity/Pelvis/MS No swelling, Non-tender Skin Skin No rash, Warm, Dry, Intact Neurologic Neurologic Orientation NL for age, Speech NL for age Portions of this section were scribed by Bry Reno on 10/17/18 at 1024 Interpretation Diagnostics Lab Results Interpretation Results Recent Impressions: RADIOLOGY - XR ELBOW 2 VIEWS RT 10/17 1017 Report Impression - Status: SIGNED Entered: 10/17/2018 1022 IMPRESSION: Normal exam. END OF IMPRESSION [id number] Impression By: DarienRTB - Grady Mcnulty M.D. Imaging Statement Radiographic studies reviewed and considered in the medical decision-making. Radiography X-Ray Interpretation Text/Dict Note Normal exam. Order - Upper Extremity Elbow R Interpretation/Wet Read by Interpret - Radiologist Reviewed by ED PA Portions of this section were scribed by Bry Reno on 10/17/18 at 1025 Re-Evaluation MDM Free Text MDM Notes Free Text MDM Notes No acute osseous abnormality identified on plain film radiography, elbow contusion. Referred to orthopedics for further evaluation and treatment. Educated on return to ED criteria. Parents agrees and acknowledges understanding of the plan. Re-Evaluation/Progress #1 Text/Dict Note Discussed results with pt and family, plan to D/C home and f/u w/ orthopedics. Provided reasons to return to the ED. Pt and family agree with plan. Time of Re-Eval 1021 ED Course Medication(s) Ordered Medication(s) Ordered: Central Nervous System Agents Sig/Crissy Start time Last Medication Dose Route Stop Time Status Admin Ibuprofen 400 MG X1ED STA 10/17 1006 DC PO 10/17 1007 Portions of this section were scribed by Bry Reno on 10/17/18 at 1025 Patient Discharge Departure Vital Signs/Condition Vital Signs First Documented: Result Date Time Pulse Ox 99 10/17 1000 B/P 132/84 10/17 1000 B/P Mean 100 10/17 1000 O2 Delivery Room air 10/17 1000 Temp 37.1 10/17 1000 Pulse 83 10/17 1000 Resp 16 10/17 1000 Last Documented: Result Date Time Pulse Ox 98 10/17 1047 B/P 126/67 10/17 1047 B/P Mean 86 10/17 1047 O2 Delivery Room air 10/17 1047 Temp 36.7 10/17 1047 Pulse 84 10/17 1047 Resp 16 10/17 1047 All vital signs available at the time of this entry have been reviewed. Condition Stable Clinical Impression Clinical Impression Primary Impression: Elbow contusion Disposition Decision Discharge )( Discharged to Home Yes )( Time 1023 )( Date 10/17/18 Discharge/Care Plan Counseled Regarding Diagnosis, Imaging studies, Prescriptions, Need for follow- up, When to return to ED Prescriptions Motrin Discharge Note I have spoken with the patient and/or caregivers. I have explained the patient's condition, diagnoses and treatment plan based on the information available to me at this time. I have answered the patient's and/or caregiver's questions and addressed any concerns. The patient and/or caregivers have as good an understanding of the patient's diagnosis, condition and treatment plan as can be expected at this point. The vital signs have been stable. The patient's condition is stable and appropriate for discharge from the emergency department. The patient will pursue further outpatient evaluation with the primary care physician or other designated or consulting physician as outlined in the discharge instructions. The patient and/or caregivers are agreeable to this plan of care and follow-up instructions have been explained in detail. The patient and/or caregivers have received these instructions in written format and have expressed an understanding of the discharge instructions. The patient and/or caregivers are aware that any significant change in condition or worsening of symptoms should prompt an immediate return to this or the closest emergency department or a call to 911. Supervising Physician Note Scribe Statement Bry Reno, 10/17/18 1025, scribing for and in the presence of ISHMAEL Adame. Signed By: Bry Reno, 10/17/18 1025 Provider Scribed Statement I personally performed the services described in this documentation and reviewed the documentation that was dictated to the scribe(s) in my presence, and it accurately records my words and actions. Ralph Corey, 10/18/18 Portions of this section were scribed by Bry Reno on 10/17/18 at 1025 Adela Workman 10/19/18 1045: HPI-Trauma Minor/Fall Peds General Initial Greet Date/Time 10/17/18 0952 Physical Exam Vital Signs Vital Signs Interpretation Diagnostics Lab Results Interpretation Results Patient Discharge Departure Vital Signs/Condition Vital Signs Supervising Physician Note MidLv Saw Pt Alone I have reviewed the PA/SOFT METALS HAND ENGRAVER's note and plan of care. I was available for consultation as needed at all times during the patient's visit in the emergency department. I agree with the clinical impression, plan and disposition. at 2150 at 1045 [facility] #:[id number] END OF REPORT [facility]
[2024-11-04] MEDS ORDERED: HYDROCODONE/APAP 7.5/325 MG TAB ONE (22:35)
[2024-11-04] MEDS ORDERED: TDAP (DIPHTH,PERTUSS(ACELL),TET VAC) 0.5 ML VIAL IMVAC ONE (22:36)
[2024-11-05] MEDS ORDERED: LIDOCAINE 1% 20 ML MDV ONE (00:09)
--- NOTE | 2024-11-05 00:41 | EDPHYS ---
Physician Documentation [facility] Name: Shaun Colmenares Age: 19 yrs Sex: Male : 2005 Arrival Date: 11/04/2024 Time: 22:14 Bed 11 Private MD: ED Physician Noel No HPI: 11/05 00:44 This 19 yrs old Male presents to ER via Ambulatory with complaints of Finger sb4 Injury - right hand pointer. 00:44 The patient or guardian reports injury, pain. The complaints affect the right index sb4 fingernail. Context: resulted from smash from hammer. Onset: The symptoms/episode began/occurred just prior to arrival. The patient has not experienced similar symptoms in the past. The patient has not recently seen a physician. Historical: - Allergies: 11/04 22:21 PENICILLINS; cp4 - Immunization history:: Adult Immunizations up to date. - Infectious Disease History:: Denies. - Social history:: Smoking status: Reported history of juuling and/or vaping. ROS: 11/05 00:44 Constitutional: Negative for fever, chills, and weight loss, sb4 Skin: Positive for laceration(s), of the right index fingernail, All other systems are negative, Exam: 00:44 Constitutional: This is a well developed, well nourished patient who is awake, alert, sb4 and in no acute distress. Head/Face: Normocephalic, atraumatic. Eyes: Extra-ocular motions intact. Periorbital areas with no swelling, redness, or edema. ENT: Mucous membranes moist. Respiratory: No increased work of breathing, no retractions or nasal flaring. 00:44 Skin: injury, laceration(s), the wound is approximately 1.5 cm(s), with a depth of .2 cm(s), of the right index fingernail, that can be described as contaminated, no foreign body, linear, without bleeding, Vital Signs: 11/04 22:19 BP 101 / 60; Pulse 82; Resp 16; Temp 98.2; Pulse Ox 100% ; Weight 72.57 kg; Height 5 cp4 ft. 4 in. ; Pain 10/10; 22:19 Body Mass Index 27.46 (72.57 kg, 162.56 cm) cp4 22:19 Pain Scale: Adult cp4 Laceration: 11/05 00:39 Wound Repair of 1cm ( 0.4in ) subcutaneous laceration to right index fingernail. Distal sb4 neuro/vascular/tendon intact. Anesthesia: Regional Block with 2 mls of 1% lidocaine. Wound prep: Extensive cleansing with betadine by nurse, Wound irrigation with saline by me. Skin closed with 1 4-0 Prolene using simple sutures and sterile technique. Dressed with non-adherent dressing. Patient tolerated well. MDM: 11/04 22:24 Medical Screening Exam initiated sb4 11/05 00:44 Data reviewed: vital signs, nurses notes, radiologic studies, I have discussed the sb4 patient's presentation/case with the attending Emergency Department Physician; and as a result, I will discharge patient. Counseling: I had a detailed discussion with the patient and/or guardian regarding the historical points, exam findings, and any diagnostic results supporting the discharge/admit diagnosis, radiology results, the need for outpatient follow up, for definitive care, to return to the emergency department if symptoms worsen or persist or if there are any questions or concerns that arise at home. 11/04 22:28 Order name: Hand Right 3 View XRAY 4 11/04 22:28 Order name: Wound Care; Complete Time: 22:44 sb4 11/04 23:59 Order name: Suture Tray at Bedside; Complete Time: 00:49 sb4 Administered Medications: 11/04 22:44 Drug: Boostrix Tdap IM 0.5 ml IM once; as a single dose Route: IM; Site: left deltoid; 4 11/05 00:49 Follow up: Response: No adverse reaction 4 11/04 22:44 Drug: Hydrocodone-Acetaminophen PO (7.5 mg-325 mg) 1 tabs PO once Route: PO; 4 11/05 00:49 Follow up: Response: No adverse reaction; Marked relief of symptoms jb4 00:48 Drug: Lidocaine Infiltration (1 %) 20 ml 20 ml Infiltration once; to bedside Volume: 20 jb4 ml; Route: Infiltration; Disposition Summary: 11/05/24 00:41 Discharge Ordered Notes: Location: Home sb4 Problem: new sb4 Symptoms: have improved sb4 Condition: Stable sb4 Diagnosis - Laceration without foreign body of right index finger with damage to nail, initial sb4 encounter Followup: sb4 - With: Private Physician - When: 10 - 14 days - Reason: Recheck today's complaints, Re-evaluation by your physician Discharge Instructions: - Discharge Summary Sheet sb4 - Laceration Care, Adult, [id number] sb4 - Nail Bed Injury, [id number] sb4 Forms: - Patient Portal Instructions sb4 - Leadership Thank You Letter sb4 Addendum: 11/07/2024 08:51 Co-signature as Attending Physician, Noel No MD I agree with the assessment and c mcnamara plan of care. Signatures: Dispatcher [employer] [facility] Noel No MD MD cha Bryson, James, RN RN jb4 Aurora Mcnulty PABerhaneC PABerhaneC sb4 Jagruti Pavon cp4 Corrections: (The following items were deleted from the chart) 11/04 22:29 22:29 Hand Right 3 View+RAD.RAD.BRZ ordered. [facility]
--- NOTE | 2024-11-05 00:41 | ER ---
Nurse's Notes [facility] Name: Shaun Colmenares Age: 19 yrs Sex: Male : 2005 Arrival Date: 11/04/2024 Time: 22:14 Bed 11 Private MD: Diagnosis: Laceration without foreign body of right index finger with damage to nail, initial encounter Presentation: 11/04 22:19 Chief complaint: Patient states: smashed right index finger with a hammer. Coronavirus cp4 screen: Client denies travel out of the [place] in the last 14 days. At this time, the client does not indicate any symptoms associated with coronavirus-19. Ebola Screen: Patient negative for fever greater than or equal to 101.5 degrees Fahrenheit, and additional compatible Ebola Virus Disease symptoms Patient denies exposure to infectious person. Patient denies travel to an Ebola-affected area in the 21 days before illness onset. No symptoms or risks identified at this time. Initial Sepsis Screen: Does the patient meet any 2 criteria? No. Patient's initial sepsis screen is negative. Does the patient have a suspected source of infection? No. Patient's initial sepsis screen is negative. Risk Assessment: Do you want to hurt yourself or someone else?. Onset of symptoms was November 04, 2024. 22:19 Method Of Arrival: Ambulatory cp4 22:19 Acuity: FLORIN 4 cp4 Triage Assessment: 22:21 General: Appears in no apparent distress. uncomfortable, Behavior is calm, cooperative, cp4 appropriate for age. Pain: Complains of pain in right index fingernail Pain does not radiate. Pain currently is 10 out of 10 on a pain scale. Musculoskeletal: Reports pain in right index fingernail. Injury Description: Crush injury sustained to right index fingernail was sustained 30-60 minutes ago. Historical: - Allergies: 22:21 PENICILLINS; cp4 - Immunization history:: Adult Immunizations up to date. - Infectious Disease History:: Denies. - Social history:: Smoking status: Reported history of juuling and/or vaping. Screenin/17 00:27 [facility] ED Fall Risk Assessment (Adult) History of falling in the last 3 months, jb4 including since admission No falls in past 3 months (0 pts) Confusion or Disorientation No (0 pts) Intoxicated or Sedated No (0 pts) Impaired Gait No (0 pts) Mobility Assist Device Used No (0 pt) Altered Elimination No (0 pt) Score/Fall Risk Level 0 - 2 = Low Risk Oriented to surroundings, Maintained a safe environment. Abuse screen: Denies threats or abuse. Nutritional screening: No deficits noted. Tuberculosis screening: No symptoms or risk factors identified. Assessment: 11/04 23:37 Reassessment: Patient appears in no apparent distress at this time. Patient and/or jb4 family updated on plan of care and expected duration. Pain level reassessed. Patient is alert, oriented x 3, equal unlabored respirations, skin warm/dry/pink. 11/05 00:27 Reassessment: Patient appears in no apparent distress at this time. Patient and/or jb4 family updated on plan of care and expected duration. Pain level reassessed. Patient is alert, oriented x 3, equal unlabored respirations, skin warm/dry/pink. Pt hand soaking in betadine. Vital Signs: 11/04 22:19 BP 101 / 60; Pulse 82; Resp 16; Temp 98.2; Pulse Ox 100% ; Weight 72.57 kg; Height 5 cp4 ft. 4 in. ; Pain 10/10; 22:19 Body Mass Index 27.46 (72.57 kg, 162.56 cm) cp4 22:19 Pain Scale: Adult cp4 ED Course: 22:15 Patient arrived in ED. im 22:17 [facility] sb[facility] 22:17 Noel No MD is Attending Physician. sb4 22:21 Triage completed. cp4 22:22 Arm band placed on right wrist. Patient placed in waiting room. cp4 22:42 Hand Right 3 View XRAY In Process Unspecified. EDMS 11/05 00:27 Patient has correct armband on for positive identification. Bed in low position. Call jb4 light in reach. Side rails up X 1. Provided Education on: plan of care. 00:27 Assist provider with laceration repair on right index fingernail that was 2.5 cm. or jb4 less using sutures. Set up tray. Performed by Aurora Mcnulty PA-C Patient tolerated well. 00:49 Patient did not have IV access during this emergency room visit. jb4 Administered Medications: 11/04 22:44 Drug: Boostrix Tdap IM 0.5 ml IM once; as a single dose Route: IM; Site: left deltoid; jb4 11/05 00:49 Follow up: Response: No adverse reaction jb4 11/04 22:44 Drug: Hydrocodone-Acetaminophen PO (7.5 mg-325 mg) 1 tabs PO once Route: PO; jb4 11/05 00:49 Follow up: Response: No adverse reaction; Marked relief of symptoms jb4 00:48 Drug: Lidocaine Infiltration (1 %) 20 ml 20 ml Infiltration once; to bedside Volume: 20 jb4 ml; Route: Infiltration; Outcome: 00:41 Discharge ordered by . sb4 00:49 Discharged to home ambulatory, jb4 00:49 Condition: stable 00:49 Discharge instructions given to patient, Instructed on discharge instructions, follow up and referral plans. Demonstrated understanding of instructions, follow-up care, 00:49 Patient left the ED. jb4 Signatures: Dispatcher [employer] EDMS Nakul Barrow RN RN jb4 Aurora Mcnulty PA-C PA-C 4 Regina Samayoa Christina 4
[2024-11-05 00:53] VITALS: BP 101/60; TEMP 98.2; O2SAT 100
--- NOTE | 2024-11-05 06:12 | RAD REPORT ---
EXAM: XR Right Hand Complete, 3 or More Views CLINICAL HISTORY: The patient is 19 years old and is Male; SMASH INJURY TECHNIQUE: Frontal, lateral and oblique views of the right hand. COMPARISON: No relevant prior studies available. FINDINGS: BONES/JOINTS: Unremarkable. No acute fracture. No dislocation. SOFT TISSUES: Unremarkable. No radiopaque foreign body. IMPRESSION: Normal right hand radiographs. Electronically signed by: Hui Lanza MD 11/04/2024 11:02 PM CDT RP Due to temporary technical issues with the [employer] reporting system, reports are being kenneth d by the in-house radiologist without review as a courtesy to ensure prompt reporting the interpreting radiologist is fully responsible for the content of the report. Transcribed Date/Time: 11/05/2024 6:12 AM
== END 2024-11-05 00:49 | disposition home or self-care (01) ==
LOC: ER 22:14
DX: S61.310A Laceration without foreign body of right index finger with damage to nail, initial encounter (principal)
CPT/HCPCS: 90715; J2003